=== PATIENT | male | born 1980 ===

== ENCOUNTER 2017-01-26 13:42 | Outpatient (CLI) | payer OTHER ==
[~2017-01-26] VITALS: Ht 180.3 cm; Wt 92.9 kg
[2017-01-26] MEDS ORDERED: VITAMIN D 50,1.25 MG PO (14:03)
[2017-01-26 14:08] VITALS: BP 131/78; PULSE 65
[2017-01-26 15:00] VITALS: BP 117/75; PULSE 51
[2017-01-26 15:55] VITALS: BP 129/74; PULSE 83
[2017-01-26 17:04] LABS: CEREBROSPINAL TUBE #1; CSF APPEARANCE CLEAR; CSF COLOR COLORLESS
[2017-01-26 17:11] VITALS: BP 120/85; PULSE 62
[2017-01-26 17:19] VITALS: BP 128/81; PULSE 58
[2017-01-28 12:54] LABS: CSF,IGG 3.8 mg/dL (<=8.1); IGG/ALBUMIN SERUM 0.37 (<=0.40)
[2017-01-28 13:04] LABS: ALBUMIN CSF 20.1 mg/dL (<=27.0); CSF IGG/ALBUMIN 0.19 (<=0.21); CSF-IGG INDEX 0.51 (<=0.85)
== END 2017-01-26 17:28 | disposition home or self-care (01) ==
LOC: COL.RAD 13:42
PROVIDERS: Psychiatry & Neurology Neurology
DX: G37.9 Demyelinating disease of central nervous system, unspecified (principal)

== ENCOUNTER → 2017-01-26 | Outpatient (CLI) | payer OTHER ==
[~2017-01-26] MED LIST: VITAMIN D 50,1.25 MG PO
== END ==
LOC: ZCOL.LAB 16:39
DX: Z01.89 Encounter for other specified special examinations (principal)

== ENCOUNTER 2017-07-19 07:53 | Outpatient (CLI) | payer OTHER ==
[~2017-07-19] VITALS: Ht 177.8 cm; Wt 95.7 kg
[2017-07-19] MEDS ORDERED: MOTRIN 800800 MG/TAB PO (08:13)
[2017-07-19] MEDS ORDERED: CIPRO 500MG TA500 MG PO (08:16)
[2017-07-19] MEDS ORDERED: AMITRIPTYLINE H25 M1 PO (08:18)
[2017-07-19] MEDS ORDERED: ULTRAM 50MG TAB50 MG PO (08:19)
[2017-07-19] MEDS ORDERED: MYRBETR25MG PO (08:19)
[2017-07-19 08:26] VITALS: BP 136/82; PULSE 63; TEMP 98.1
[2017-07-19 10:15] VITALS: BP 132/88; PULSE 59; TEMP 98.1
[2017-07-19 10:30] VITALS: BP 130/88; PULSE 60
[2017-07-19 10:45] VITALS: BP 128/86; PULSE 57
[2017-07-19 11:00] VITALS: BP 126/86; PULSE 63
== END 2017-07-19 11:56 | disposition home or self-care (01) ==
LOC: COL.CAR 07:53
DX: R55 Syncope and collapse (principal)